=== PATIENT | male | born 1980 | race African-American/Black ===

== ENCOUNTER 2020-05-20 19:08 | Emergency (ER) | payer SELFPAY ==
[~2020-05-20] VITALS: Ht 170.2 cm; Wt 83.0 kg
[2020-05-20 19:12] VITALS: BP 148/80
== END 2020-05-20 20:55 | disposition left against medical advice (07) ==
LOC: ER 19:08
DX: F22 Delusional disorders (principal); F20.9 Schizophrenia, unspecified; F32.9 Major depressive disorder, single episode, unspecified; F41.9 Anxiety disorder, unspecified; R45.850 Homicidal ideations; F17.210 Nicotine dependence, cigarettes, uncomplicated
CPT/HCPCS: 99283